=== PATIENT | female | born 1975 | race Caucasian/White ===

== ENCOUNTER → 2019-09-10 11:56 | Outpatient (CLI) | payer OTHER, SELFPAY ==
--- NOTE | 2019-09-10 | DI.US.S_ITS ---
PROCEDURE: US PELVIC COMPLETE INDICATIONS: ENDOMETRIAL LINING; FERTILITY WORK-UP TECHNIQUE: Real-time scanning was performed of the pelvic organs, with image documentation. Additional endovaginal scanning was necessary due to incomplete visualization of the adnexal and endometrial structures by transabdominal scanning. COMPARISON: None. FINDINGS: Transabdominal scanning: Limited scanning through the kidneys shows no hydronephrosis. No pathologic free abdominal or pelvic fluid. Endovaginal scanning: Uterus: Uterus is normal in size at 3 x 5 x 5.1 x 6.4 cm, anteverted. The endometrium measures 10.0 mm in combined thickness. Ovaries: The are not enlarged in measure 1.7 x 2.3 x 2.7 cm on the right and 1.8 x 2.1 x 3.4 cm on the left IMPRESSION: Normal endometrial lining thickness of 10 mm, normal appearance of the ovaries and myometrium. Dictated by: Hemant Beckwith M.D. on 09/10/2019 at 13:29 Approved by: Hemant Beckwith M.D. on 09/10/2019 at 14:15
== END ==
PROVIDERS: Family Provider Naturopath; PCP Naturopath; Visit Provider Nurse Practitioner Family
DX: Z31.41 Encounter for fertility testing (principal)
CPT/HCPCS: 76856

== ENCOUNTER → 2021-05-30 12:46 | Outpatient (CLI) | payer OTHER, SELFPAY ==
--- NOTE | 2021-05-30 | DI.US.S_ITS ---
PROCEDURE: US PELVIC COMPLETE INDICATIONS: FERTILITY CHECK TECHNIQUE: Real-time scanning was performed of the pelvic organs, with image documentation. Additional endovaginal scanning was necessary due to incomplete visualization of the adnexal and endometrial structures by transabdominal scanning. COMPARISON: [facility], , US PELVIC COMPLETE, 09/10/2019, 12:15. FINDINGS: Uterus: Uterus is normal in size at 7.3 x 3.9 x 4 point cm. The endometrium measures 9.4 mm in combined thickness. Ovaries: Right ovary measures 3.1 x 2.2 x 3.1 centimeters. There is a 1.4 x 1.4 x 1.9 centimeter complex right ovarian cyst. Left ovary measures 3.1 x 2.0 x 1.8 centimeters. There is a 0.9 x 0.7 x 0.5 centimeter involuting simple cyst in the left ovary. Other: Small amount of free fluid noted in the cul-de-sac of the pelvis. IMPRESSION: 1. Uterus is sonographically normal. 2. Small bilateral adnexal cysts. 3. Small amount of free fluid. Dictated by: Heena Kaur MD, PhD on 05/30/2021 at 13:59 Approved by: Heena Kaur MD, PhD on 05/30/2021 at 14:03
== END ==
PROVIDERS: Family Provider Naturopath; PCP Naturopath; Referring Provider Nurse Practitioner Family; Visit Provider Nurse Practitioner Family
DX: Z31.89 Encounter for other procreative management (principal); N83.292 Other ovarian cyst, left side; N83.291 Other ovarian cyst, right side
CPT/HCPCS: 76830; 76856